=== PATIENT | female | born 1930 | race Caucasian/White ===

== ENCOUNTER 2018-06-20 11:56 | Inpatient (IN) ==
--- NOTE | 2018-06-20 14:39 | Pharmacy Consult Notes ---
[facility] Pharmacy VTE Monitoring - Patient Demographics Admission date: 06/20/18 Report Date: 06/20/18 Time: 14:38 Allergies/Adverse Reactions: Patient Allergies ciprofloxacin Allergy (Unknown, Verified 10/21/17 04:31) escitalopram Allergy (Unknown, Verified 10/21/17 04:31) pregabalin Allergy (Unknown, Verified 10/21/17 04:31) Height: 1.65 m Weight: 54.885 kg - VTE Risk Was VTE Risk Assessment Performed: Yes VTE Risk Level: Very Low Risk - Prophylaxis VTE Prophylaxis Ordered?: Yes Types of VTE Prophylaxis: TEDS Knee High Location of Applied Device: Bilateral Lower Extremeties - VTE Diagnosis Confirmed Treatment or plan recommended: Continue Current Treatment
[2018-06-20 14:51] LABS: Basophils # 0.1 K/mm3 (0-0.2); Basophils % 0.4 % (0.1-2.0); Eosinophils # 0.2 K/mm3 (0.0-0.4); Eosinophils % 1.7 % (0.1-12.0); Hematocrit 37.5 % (37.0-47.0); Hemoglobin 12.2 g/dL (12.2-16.2); Lymphocytes # 1.1 K/mm3 (0.7-4.5); Lymphocytes % 8.8 K/mm3 (10-50); Mean Corpuscular HGB Conc 32.5 g/dL (31.8-35.4); Mean Corpuscular Hemoglobin 31.5 pg (27.0-31.2); Mean Corpuscular Volume 96.8 fl (81-99); Mean Platelet Volume 7.7 fl (7.4-10.4); Monocytes # 0.8 K/mm3 (0.1-1.0); Monocytes % 6.2 % (1.7-9.3); Neutrophils # 10.6 K/mm3 (1.8-7.8); Neutrophils % 82.8 % (37.0-80.0); Platelet Count 150 K/mm3 (142-424); Red Blood Count 3.87 M/mm3 (4.20-5.40); Red Cell Distribution Width 13.9 % (11.5-17.5); White Blood Count 12.9 K/mm3 (4.8-10.8)
[2018-06-20 15:13] LABS: Albumin Level 3.6 gm/dL (3.4-5.0); Albumin/Globulin Ratio 0.9 (1.1-1.8); Anion Gap 12.4 mEq/L (5-15); Bilirubin,Total 0.6 mg/dL (0.2-1.0); Calcium 9.2 mg/dL (8.5-10.1); Globulin 3.8 gm/dl (1.3-3.2); Potassium 4.4 mmoL/L (3.5-5.1); Total Protein,Serum 7.4 gm/dL (6.4-8.2)
--- NOTE | 2018-06-21 08:20 | History & Physical Report ---
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 Daughter reports that she has had accelerating weakness over the past 3-4 days, worse in the morning and she reports a cough. In the office she was found to be weak, orthostatic, unable to bear weight. Had some chronic leg ulcers that have failed to heal with antibiotic and dressing treatment as an outpatient and she was admitted to hospital for further diagnostic testing. [facility] History I have reviewed the patient's past medical history: Yes Medical History: Reports:: Anxiety, Hypertension Denies:: Cancer, Diabetes Mellitus Type 1, Diabetes Mellitus Type 2, MRSA Other Medical History: Reports: Arthritis, Cataracts, Sinus Problems, Thyroid Disease Laterality Cases: Bilateral: Lumpectomy Other Surgeries: Yes: Appendectomy, Cholecystectomy, Colonoscopy, EGD, Hysterectomy-TotalComment Only: Other (HERNIA) Amputation: No Fractures: No - *Social History Educational Level: Completed [employer] Smoking Status: Never smoker Alcohol Intake: never Occupational Status: retired Housing: apartment Household Members: none - Psychiatric History Expresses thoughts of harming self/others: None Suicide Plan Description: No Plan Pschychiatric History:: Reports:: Anxiety *Family Hx:: No significant family history Review of Systems - Review of Systems Review of systems:: pertinent systems reviewed and negative unless documented below - Constitutional Reports anorexia, Reports body ache(s), Reports chills, Reports daytime sleepiness, Reports lack of energy, Reports malaise, Reports weakness - Eyes Denies blurry vision, Denies change in vision - ENT Denies abnormal hearing - *Cardiovascular Reports shortness of breath with activity, Denies chest pain, Denies chest pain at rest, Denies shortness of breath - *Respiratory Reports cough, Reports shortness of breath, Denies change in phlegm color, Denies chest congestion - *Gastrointestinal Reports abdominal pain (Chronic right upper quadrant), Reports feeling full lurdes y, Denies coffee ground vomit, Denies constipation, Denies incontinent of stools, Denies loose stools, Denies black, tarry stools - *Musculoskeletal Reports abnormal walking, Reports joint pain, Reports decreased muscle mass - Integumentary/Breasts Reports bleeding lesions, Denies hair loss - *Neurologic Reports abnormal walking, Denies abnormal hearing - Psychiatric Reports depression - Endocrine Denies cold intolerance, Denies excessive sweating Meds Home Medications Medication Instructions Recorded Confirmed Type Aspirin [Adult Low Dose Aspirin EC] 81 mg PO DAILY 10/21/17 11/02/17 History Carvedilol [Carvedilol 3.125mg Tab] 3.125 mg PO HS 10/21/17 11/03/17 History Levothyroxine Sodium 0.075 mg PO DAILY 10/21/17 11/02/17 History [Levothyroxine 100mcg (0.1MG) Tab] raNITIdine HCl [Zantac] 150 mg PO BID 10/21/17 11/02/17 History Furosemide [Furosemide 20mg Tab] 10 mg PO DAILY 11/02/17 06/20/18 History Timolol Maleate [Timoptic 0.5% 1 drop OP BID 11/02/17 11/02/17 History opth soln 5mL] Clindamycin HCl [Clindamycin 300mg 300 mg PO TID 06/20/18 History Cap] Allergies Allergy/AdvReac Type Severity Reaction Status Date / Time ciprofloxacin Allergy Unknown Verified 10/21/17 04:31 escitalopram Allergy Unknown Verified 10/21/17 04:31 pregabalin Allergy Unknown Verified 10/21/17 04:31 Exam Vital signs and Labs for Last 24 Hours: Temp Pulse Resp BP Pulse Ox 98.0 F 67 16 157/73 96 06/21/18 07:58 06/21/18 07:58 06/21/18 07:58 06/21/18 07:58 06/21/18 07:58 Laboratory Results - last 24 hr 06/20/18 14:26: WBC 12.9 H, RBC 3.87 L, Hgb 12.2, Hct 37.5, MCV 96.8, MCH 31.5 H , MCHC 32.5, RDW 13.9, Plt Count 150, MPV 7.7, Neut % (Auto) 82.8 H, Lymph % (Auto) 8.8 L, [place] % (Auto) 6.2, Eos % (Auto) 1.7, Baso % (Auto) 0.4, Neut # (Auto) 10.6 H, Lymph # (Auto) 1.1, [place] # (Auto) 0.8, Eos # (Auto) 0.2, Baso # (Auto) 0.1 06/20/18 14:26: Sodium 137, Potassium 4.4, Chloride 100, Carbon Dioxide 29, Ani on Gap 12.4, BUN 11, Creatinine 1.11 H, Estimated Creat Clear 31, Estimated GFR 46 L, Est GFR ( Amer) 56 L, Glucose 99, Calcium 9.2, Magnesium 1.9, Total Bilirubin 0.6, AST 18, ALT 17, Alkaline Phosphatase 80, Total Protein 7.4, Albumin 3.6, Globulin 3.8 H, Albumin/Globulin Ratio 0.9 L I & O for Last 24 hours: Intake & Output 06/18/18 06/19/18 06/20/18 06/21/18 11:59 11:59 11:59 11:59 Intake Total 1046 / 1046 Output Total 850 / 850 Balance 196 / 196 Weight 123 lb 1 oz Microbiology Reports for the Last 24 Hours: Microbiology 06/20/18 14:48 Leg,Right Gram Stain - Final 06/20/18 14:48 Leg,Right Wound Culture - Preliminary Gram Negative Rods Narrative: Patient was oriented x2, a little fuzzy about the date. Oropharynx is dry but clear, no JVD. Tympanic membranes otherwise clear.. Lungs have rhonchi in both bases. Abdomen soft. Tenderness in right upper quadrant as noted on every exam. No CVA pain. Legs are dry, nonhealing anterior solano ulcers with minimal exudate on both anterior shins. No edema noted. Loss of sensation and paresthesias noted sick consistent with her previous diagnosis of Guillain-Delcid. Heart rate regular with no murmurs. Assessment and Plan (1) Peripheral neuropathy Current visit: Yes Status: Acute Category: Medical Code(s): G62.9 - Polyneuropathy, unspecified Neuropathy limits her activity levels. Seems to be flaring. Plan will be to PT and OT to see her. She has benefited from skilled care stay in the past. This may need to be redone. (2) Left lower lobe pneumonia Current visit: Yes Status: Acute Category: Medical Code(s): J18.1 - Lobar pneumonia, unspecified organism Admission chest x-ray noted to show pneumonia. We will institute antibiotic therapy (3) Cellulitis of right lower leg Current visit: No Status: Acute Category: Medical Code(s): L03.115 - Cellulitis of right lower limb Failed outpatient therapy. Intravenous ceftriaxone and topical mupirocin (4) Fall Current visit: No Status: Acute Qualifiers: Category: Medical Code(s): W19.XXXA - Unspecified fall, initial encounter PT/OT evaluation (5) Hypothyroidism Current visit: No Status: Chronic Qualifiers: Category: Medical Code(s): E03.9 - Hypothyroidism, unspecified
--- NOTE | 2018-06-21 08:22 | Progress Note ---
Internal Medicine - PN: Subj *Date: 06/21/18 *Time: 08:21 Interval history: Patient continues to feel poorly, did eat some breakfast. Exam Vital signs and Labs for Last 24 Hours: Temp Pulse Resp BP Pulse Ox 98.0 F 67 16 157/73 96 06/21/18 07:58 06/21/18 07:58 06/21/18 07:58 06/21/18 07:58 06/21/18 07:58 Laboratory Results - last 24 hr 06/20/18 14:26: WBC 12.9 H, RBC 3.87 L, Hgb 12.2, Hct 37.5, MCV 96.8, MCH 31.5 H , MCHC 32.5, RDW 13.9, Plt Count 150, MPV 7.7, Neut % (Auto) 82.8 H, Lymph % (Auto) 8.8 L, [place] % (Auto) 6.2, Eos % (Auto) 1.7, Baso % (Auto) 0.4, Neut # (Auto) 10.6 H, Lymph # (Auto) 1.1, [place] # (Auto) 0.8, Eos # (Auto) 0.2, Baso # (Auto) 0.1 06/20/18 14:26: Sodium 137, Potassium 4.4, Chloride 100, Carbon Dioxide 29, Anion Gap 12.4, BUN 11, Creatinine 1.11 H, Estimated Creat Clear 31, Estimated GFR 46 L, Est GFR ( Amer) 56 L, Glucose 99, Calcium 9.2, Magnesium 1.9, Total Bilirubin 0.6, AST 18, ALT 17, Alkaline Phosphatase 80, Total Protein 7.4, Albumin 3.6, Globulin 3.8 H, Albumin/Globulin Ratio 0.9 L I & O for Last 24 hours: Intake & Output 06/18/18 06/19/18 06/20/18 06/21/18 11:59 11:59 11:59 11:59 Intake Total 1046 / 1046 Output Total 850 / 850 Balance 196 / 196 Weight 123 lb 1 oz Microbiology Reports for the Last 24 Hours: Microbiology 06/20/18 14:48 Leg,Right Gram Stain - Final 06/20/18 14:48 Leg,Right Wound Culture - Preliminary Gram Negative Rods Narrative: Cough. Lungs have rhonchi bilaterally, heart rate regular. No change in leg exam. Very weak Assessment and Plan (1) Peripheral neuropathy Current visit: Yes Status: Acute Category: Medical Code(s): G62.9 - Polyneuropathy, unspecified (2) Left lower lobe pneumonia Current visit: Yes Status: Acute Category: Medical Code(s): J18.1 - Lobar pneumonia, unspecified organism (3) Cellulitis of right lower leg Current visit: No Status: Acute Category: Medical Code(s): L03.115 - Cellulitis of right lower limb (4) Fall Current visit: No Status: Acute Qualifiers: Category: Medical Code(s): W19.XXXA - Unspecified fall, initial encounter (5) Hypothyroidism Current visit: No Status: Chronic Qualifiers: Category: Medical Code(s): E03.9 - Hypothyroidism, unspecified - Assessment and plan all Dx Assessment and Plan for all problems:: Continue antibiotic therapy. PT/OT evaluation. Patient may benefit from skilled care rehab stay. Sputum culture ordered.
[2018-06-22 07:18] LABS: Basophils % 0.4 % (0.1-2.0); Eosinophils # 0.3 K/mm3 (0.0-0.4); Eosinophils % 5.8 % (0.1-12.0); Hematocrit 31.9 % (37.0-47.0); Hemoglobin 10.1 g/dL (12.2-16.2); Lymphocytes % 33.6 K/mm3 (10-50); Mean Corpuscular HGB Conc 31.7 g/dL (31.8-35.4); Mean Corpuscular Hemoglobin 31.6 pg (27.0-31.2); Mean Corpuscular Volume 99.8 fl (81-99); Mean Platelet Volume 7.8 fl (7.4-10.4); Monocytes # 0.6 K/mm3 (0.1-1.0); Monocytes % 9.9 % (1.7-9.3); Neutrophils # 2.9 K/mm3 (1.8-7.8); Neutrophils % 50.2 % (37.0-80.0); Platelet Count 152 K/mm3 (142-424); Red Blood Count 3.19 M/mm3 (4.20-5.40); Red Cell Distribution Width 14.2 % (11.5-17.5); White Blood Count 5.9 K/mm3 (4.8-10.8)
--- NOTE | 2018-06-22 07:54 | Progress Note ---
Internal Medicine - PN: Subj *Date: 06/22/18 *Time: 08:00 Interval history: Patient is sitting up in bed eating breakfast. She continues to have non- productive cough, mild shortness of breath with exertion. She did well with PT yesterday and was able to ambulate 200 foot. Alert and oriented x3. Rate and rhythm regular. Lung sounds clear and equal anteriorly. Abdomen soft and nontender. Left anterior solano with small superficial wound, + for pseudomonas which is pansensitive. Exam Vital signs and Labs for Last 24 Hours: Temp Pulse Resp BP Pulse Ox 98.5 F 76 14 163/72 94 L 06/22/18 04:00 06/22/18 04:00 06/22/18 04:00 06/22/18 04:00 06/22/18 04:00 Laboratory Results - last 24 hr 06/22/18 06:50: WBC 5.9 D, RBC 3.19 L, Hgb 10.1 L, Hct 31.9 L, MCV 99.8 H, MCH 31.6 H, MCHC 31.7 L, RDW 14.2, Plt Count 152, MPV 7.8, Neut % (Auto) 50.2, Lymph % (Auto) 33.6, [place] % (Auto) 9.9 H, Eos % (Auto) 5.8, Baso % (Auto) 0.4, Neut # (Auto) 2.9, Lymph # (Auto) 2.0, [place] # (Auto) 0.6, Eos # (Auto) 0.3, Baso # (Auto) 0.0 I & O for Last 24 hours: Intake & Output 06/19/18 06/20/18 06/21/18 06/22/18 11:59 11:59 11:59 11:59 Intake Total 1046 / 1046 980 / 980 Output Total 1100 / 1100 350 / 350 Balance -54 / -54 630 / 630 Weight 123 lb 1 oz 123 lb 0.992 oz Microbiology Reports for the Last 24 Hours: Microbiology 06/20/18 14:48 Leg,Right Gram Stain - Final 06/20/18 14:48 Leg,Right Wound Culture - Final Pseudomonas aeruginosa Assessment and Plan (1) Peripheral neuropathy Current visit: Yes Status: Acute Category: Medical Code(s): G62.9 - Polyneuropathy, unspecified (2) Left lower lobe pneumonia Current visit: Yes Status: Acute Category: Medical Code(s): J18.1 - Lobar pneumonia, unspecified organism (3) Cellulitis of right lower leg Current visit: No Status: Acute Category: Medical Code(s): L03.115 - Cellulitis of right lower limb (4) Fall Current visit: No Status: Acute Qualifiers: Category: Medical Code(s): W19.XXXA - Unspecified fall, initial encounter (5) Hypothyroidism Current visit: No Status: Chronic Qualifiers: Category: Medical Code(s): E03.9 - Hypothyroidism, unspecified (6) Pseudomonas aeruginosa infection Current visit: Yes Status: Acute Category: Medical Code(s): A49.8 - Other bacterial infections of unspecified site - Assessment and plan all Dx Assessment and Plan for all problems:: Continue azithromycin and ceftriaxone for pneumonia. Add tobra for pseudomonas cellulitis. Daughter reports facial swelling, nausea and confusion with Cipro. Blood pressure elevated, will increase Coreg to home dose. Plan to transition to [facility] Tuesday for short term rehab.
--- NOTE | 2018-06-22 08:46 | Pharmacy Consult Notes ---
- Pharmacy Consult Date: 06/22/18 Time: 08:44 Referring provider: JAYA RICHARD Reason for Consult:: TOBRAMYCIN DOSING Allergies and ADEs:: Allergies Allergy/AdvReac Type Severity Reaction Status Date / Time ciprofloxacin Allergy Unknown Verified 10/21/17 04:31 escitalopram Allergy Unknown Verified 10/21/17 04:31 pregabalin Allergy Unknown Verified 10/21/17 04:31 Home Medications:: Home Medications Medication Instructions Recorded Confirmed Type Furosemide [Furosemide 20mg Tab] 10 mg PO DAILY 11/02/17 06/20/18 History ALPRAZolam [Xanax 1mg tab] 1 mg PO TID 06/21/18 06/21/18 History Carvedilol [Carvedilol 6.25mg Tab] 6.25 mg PO BID 06/21/18 06/21/18 History Cetirizine HCl 10 mg PO DAILY 06/21/18 06/21/18 History Gabapentin [Neurontin 600mg 600 mg PO QID 06/21/18 06/21/18 History tablet] Levothyroxine Sodium 75 mcg PO DAILY 06/21/18 06/21/18 History [Levothyroxine 75mcg (0.075mg) Tab] Sertraline HCl [Zoloft 50mg tablet] 50 mg PO DAILY 06/21/18 06/21/18 History Tizanidine HCl [Zanaflex 4mg 2 mg PO HSP PRN 06/21/18 06/21/18 History tablet] raNITIdine HCl [Ranitidine HCl] 150 mg PO BID 06/21/18 06/21/18 History Height: 1.65 m Weight: 55.82 kg Laboratory Results:: Laboratory Results - last 24 hr 06/22/18 06:50: WBC 5.9 D, RBC 3.19 L, Hgb 10.1 L, Hct 31.9 L, MCV 99.8 H, MCH 31.6 H, MCHC 31.7 L, RDW 14.2, Plt Count 152, MPV 7.8, Neut % (Auto) 50.2, Lymph % (Auto) 33.6, [place] % (Auto) 9.9 H, Eos % (Auto) 5.8, Baso % (Auto) 0.4, Neut # (Auto) 2.9, Lymph # (Auto) 2.0, [place] # (Auto) 0.6, Eos # (Auto) 0.3, Baso # (Auto) 0.0 06/22/18 06:50: Sodium 142, Potassium 4.0, Chloride 110 H, Carbon Dioxide 26, Anion Gap 10.0, BUN 6 L D, Creatinine 0.71 D, Estimated Creat Clear 35, Estimated GFR 78, Est GFR ( Amer) 94 D, Glucose 86 Medical History: Reports:: Anxiety, Hypertension Denies:: Cancer, Diabetes Mellitus Type 1, Diabetes Mellitus Type 2, MRSA Assessment and Plan (1) Peripheral neuropathy Current visit: Yes Status: Acute Category: Medical Code(s): G62.9 - Polyneuropathy, unspecified (2) Left lower lobe pneumonia Current visit: Yes Status: Acute Category: Medical Code(s): J18.1 - Lobar pneumonia, unspecified organism (3) Cellulitis of right lower leg Current visit: No Status: Acute Category: Medical Code(s): L03.115 - Cellulitis of right lower limb (4) Fall Current visit: No Status: Acute Qualifiers: Category: Medical Code(s): W19.XXXA - Unspecified fall, initial encounter (5) Hypothyroidism Current visit: No Status: Chronic Qualifiers: Category: Medical Code(s): E03.9 - Hypothyroidism, unspecified (6) Pseudomonas aeruginosa infection Current visit: Yes Status: Acute Category: Medical Code(s): A49.8 - Other bacterial infections of unspecified site - Assessment and plan all Dx Assessment and Plan for all problems:: BASED ON PATIENT'S FACTORS, RECOMMEND STARTING WITH TOBRAMYCIN 240 MG Q48H AT THIS TIME. PHARMACY WILL FOLLOW DAILY AND ADJUST APPROPRIATE. JUAN ENRIQUEZ, [place]
--- NOTE | 2018-06-23 08:46 | Progress Note ---
Internal Medicine - PN: Subj *Date: 06/23/18 *Time: 08:00 Interval history: Patient remained hemodynamically stable overnight. Remained afebrile. Tolerating regular diet. Has had elevated systolic blood pressure with wide pulse pressure. Denies any headaches, confusion, chest pain, shortness of breath, or worsening lower extremity edema. In a good mood this morning and very talkative. Alert and oriented. Exam Vital signs and Labs for Last 24 Hours: Temp Pulse Resp BP Pulse Ox 97.8 F 67 18 183/85 98 06/23/18 08:00 06/23/18 08:00 06/23/18 08:00 06/23/18 08:00 06/23/18 08:35 Laboratory Results - last 24 hr 06/22/18 06:50: Calcium 8.0 L D 06/22/18 14:43: Stl Aeromonas (PCR) Not detected, Stl C. cayetanensis PCR Not detected, Stool Rotavirus (PCR) Not detected, Stl Adenov F 40/41 PCR Not detected, Stool Astrovirus (PCR) Not detected, Stool Campylobacter PCR Not detected, Stl C.difficile Tox PCR Not detected, Stool Cryptosporidium PCR Not detected, Stl E.coli Shiga Tox PCR Not detected, Stool E coli O157 PCR Not detected, Stl Enterotoxigenic E PCR Not detected, Stool EPEC (PCR) Not detected, Stool EAEC (PCR) Not detected, Stl E. histolytica PCR Not detected, Stool Giardia Lamblia PCR Not detected, Stool Salmonella PCR Not detected, Stool Sapovirus (PCR) Not detected, Stl P. shigelloides PCR Not detected, Stl Shigella/EIEC PCR Not detected, St Y.enterocolitica PCR Not detected, Stool Vibrio (PCR) Not detected, Stl Vibrio cholerae PCR Not detected, Stl Norovirus GI/GII PCR Not detected 06/22/18 15:10: Random Tobramycin 5.6 06/22/18 23:00: Random Tobramycin 2.0 I & O for Last 24 hours: Intake & Output 06/20/18 06/21/18 06/22/18 06/23/18 23:59 23:59 23:59 23:59 Intake Total 50 / 50 1476 / 1476 2194 / 2194 777 / 777 Output Total 600 / 600 750 / 750 651 / 651 300 / 300 Balance -550 / -550 726 / 726 1543 / 1543 477 / 477 Weight 54.885 kg 55.82 kg 55.82 kg 54.83 kg Microbiology Reports for the Last 24 Hours: Microbiology 06/20/18 14:48 Leg,Right Gram Stain - Final 06/20/18 14:48 Leg,Right Wound Culture - Final Pseudomonas aeruginosa - *Routine HEENT Exam Head: Present: normocephalic, atraumatic Eye: Present: EOMI, PERRL ENT: Present: mucous membranes moist - *Routine Neck Exam Present: supple, full ROM. Absent: lymphadenopathy - *Routine Respiratory Exam Present: CTA bilaterally. Absent: prolonged expiratory phase, rales, wheezes, crackles - *Routine Cardiovascular Exam Present: RRR, Normal S1, Normal S2. Absent: murmur - *Routine Abdominal Exam Present: soft, normoactive bowel sounds - *Routine Rectal Exam Patient deferred: visual exam - *Routine Exam Patient deferred: external exam - *Routine Extremities Exam Present: edema. Absent: cyanosis, clubbing Comments: Chronic stasis/cellulitis discoloration on the anterior shins. Minimal warmth to palpation, minimal tenderness - *Routine Skin Exam Present: intact, erythema, lesions (On bilateral anterior shins). Absent: cyanosis - *Routine Neurological Exam Present: alert, oriented X3, CN II-XII intact Assessment and Plan (1) Peripheral neuropathy Current visit: Yes Status: Acute Category: Medical Code(s): G62.9 - Polyneuropathy, unspecified (2) Left lower lobe pneumonia Current visit: Yes Status: Acute Category: Medical Code(s): J18.1 - Lobar pneumonia, unspecified organism (3) Cellulitis of right lower leg Current visit: No Status: Acute Category: Medical Code(s): L03.115 - Cellulitis of right lower limb (4) Fall Current visit: No Status: Acute Qualifiers: Category: Medical Code(s): W19.XXXA - Unspecified fall, initial encounter (5) Hypothyroidism Current visit: No Status: Chronic Qualifiers: Category: Medical Code(s): E03.9 - Hypothyroidism, unspecified (6) Pseudomonas aeruginosa infection Current visit: Yes Status: Acute Category: Medical Code(s): A49.8 - Other bacterial infections of unspecified site - Assessment and plan all Dx Assessment and Plan for all problems:: Continue current course. Continue antibiotics for pseudomonal infection and pneumonia. Hypertension: Continue carvedilol, initiate lisinopril 5 mg daily to assess response. Titrate as needed. We will not aggressively treat as patient remains asymptomatic even with elevated systolic pressure. Disposition: Planned discharge tomorrow to [facility] for detention. Remains medically stable.
--- NOTE | 2018-06-23 08:50 | Discharge Summary ---
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 Daughter reports that she has had accelerating weakness over the past 3-4 days, worse in the morning and she reports a cough. In the office she was found to be weak, orthostatic, unable to bear weight. Had some chronic leg ulcers that have failed to heal with antibiotic and dressing treatment as an outpatient and she was admitted to hospital for further diagnostic testing. Hospital Course Hospital Course: Ms. Peng was initially admitted due to weakness and debility. Found to have pneumonia and cellulitis on her legs. She has been treated for her pneumonia which is shown significant clinical improvement. Initiation of tobramycin for Pseudomonas cellulitis due to concern for allergy to ciprofloxacin. A 10-day course of tobramycin with continuation of doses intramuscularly every 48 hours after discharge. Additionally during admission patient developed hypertension. Adjustment was made to her hypertension regimen with addition of lisinopril 5 mg daily. Plan to continue this in the outpatient setting. Continue treatment for pneumonia with Cefdinir total of 10 days, completing 5 days in the outpatient setting. Completed course of azithromycin during admission. Patient was assessed for fdc placement, accepted to [facility]. Medically stable for discharge to skilled nursing for continued care Objective Vital signs: Temp Pulse Resp BP Pulse Ox 97.8 F 67 18 183/85 98 06/23/18 08:00 06/23/18 08:00 06/23/18 08:00 06/23/18 08:00 06/23/18 08:35 - *Routine HEENT Exam Head: Present: normocephalic, atraumatic Eye: Present: EOMI, PERRL ENT: Present: mucous membranes moist - *Routine Neck Exam Present: supple, full ROM. Absent: lymphadenopathy - *Routine Respiratory Exam Present: CTA bilaterally. Absent: prolonged expiratory phase, rales, wheezes - *Routine Cardiovascular Exam Present: RRR, Normal S1, Normal S2 - *Routine Abdominal Exam Present: soft, normoactive bowel sounds. Absent: tenderness - *Routine Rectal Exam Patient deferred: visual exam - *Routine Exam Patient deferred: external exam - *Routine Extremities Exam Present: edema. Absent: cyanosis, clubbing Comments: Chronic venous stasis changes on anterior shins with mild erythema due to cellulitis, improving - *Routine Skin Exam Present: intact. Absent: cyanosis - *Routine Neurological Exam Present: alert, oriented X3, CN II-XII intact. Absent: altered mental status Results Labs on day of discharge: Labs from last 24 hours 06/22/18 06/22/18 06/22/18 23:00 15:10 14:43 Stl Aeromonas (PCR) Not detected Stl C. cayetanensis PCR Not detected Stool Rotavirus (PCR) Not detected Stl Adenov F 40/41 PCR Not detected Stool Astrovirus (PCR) Not detected Stool Campylobacter PCR Not detected Stl C.difficile Tox PCR Not detected Stool Cryptosporidium PCR Not detected Stl E.coli Shiga Tox PCR Not detected Stool E coli O157 PCR Not detected Stl Enterotoxigenic E PCR Not detected Stool EPEC (PCR) Not detected Stool EAEC (PCR) Not detected Stl E. histolytica PCR Not detected Stool Giardia Lamblia PCR Not detected Stool Salmonella PCR Not detected Stool Sapovirus (PCR) Not detected Stl P. shigelloides PCR Not detected Stl Shigella/EIEC PCR Not detected St Y.enterocolitica PCR Not detected Stool Vibrio (PCR) Not detected Stl Vibrio cholerae PCR Not detected Stl Norovirus GI/GII PCR Not detected Random Tobramycin 2.0 5.6 DS: Diagnosis - Discharge Diagnosis (1) Peripheral neuropathy Status: Acute (2) Left lower lobe pneumonia Status: Acute (3) Cellulitis of right lower leg Status: Acute (4) Fall Status: Acute (5) Hypothyroidism Status: Chronic (6) Pseudomonas aeruginosa infection Status: Acute Discharge Plan - Patient Discharge Instructions ACTIVITY: Continue current activity, Ambulate as tolerated DIET: continue same diet - Follow up Plan Follow up with: Fredis Quiñones MD [Primary Care Provider] - 1 week Disposition: er Intermediate Care Fac Home Medications: Home Medications Medication Instructions Recorded Confirmed Type Furosemide [Furosemide 20mg Tab] 10 mg PO DAILY 11/02/17 06/20/18 History ALPRAZolam [Xanax 1mg tab] 1 mg PO TID 06/21/18 06/21/18 History Carvedilol [Carvedilol 6.25mg Tab] 6.25 mg PO BID 06/21/18 06/21/18 History Cetirizine HCl 10 mg PO DAILY 06/21/18 06/21/18 History Gabapentin [Neurontin 600mg 600 mg PO QID 06/21/18 06/21/18 History tablet] Levothyroxine Sodium 75 mcg PO DAILY 06/21/18 06/21/18 History [Levothyroxine 75mcg (0.075mg) Tab] Sertraline HCl [Zoloft 50mg tablet] 50 mg PO DAILY 06/21/18 06/21/18 History Tizanidine HCl [Zanaflex 4mg 2 mg PO HSP PRN 06/21/18 06/21/18 History tablet] raNITIdine HCl [Ranitidine HCl] 150 mg PO BID 06/21/18 06/21/18 History Prescriptions/Medication Reconciliation: New Lisinopril [Zestril 5mg Tablet] 5 mg PO DAILY tablet Mupirocin [Bactroban 2% Ointment 22gm tube] 1 applic TP TID tube Cefdinir [Omnicef 300mg Capsule] 300 mg PO DAILY capsule Tobramycin Sulfate [Tobramycin 80mg/2mL Vial] 360 mg IM Q48H ml Azithromycin [Zithromax 250mg tab] 250 mg PO DAILY 2 Days #1 tablet Cefdinir [Omnicef 300mg Capsule] 300 mg PO BID 5 Days #10 cap Continue ALPRAZolam [Xanax 1mg tab] 1 mg PO TID Carvedilol [Carvedilol 6.25mg Tab] 6.25 mg PO BID Tizanidine HCl [Zanaflex 4mg tablet] 2 mg PO HSP PRN PRN Reason: Muscle Spasm raNITIdine HCl [Ranitidine HCl] 150 mg PO BID Sertraline HCl [Zoloft 50mg tablet] 50 mg PO DAILY Gabapentin [Neurontin 600mg tablet] 600 mg PO QID Cetirizine HCl 10 mg PO DAILY Furosemide [Furosemide 20mg Tab] 10 mg PO DAILY Levothyroxine Sodium [Levothyroxine 75mcg (0.075mg) Tab] 75 mcg PO DAILY
--- NOTE | 2018-06-23 10:21 | Progress Note ---
Internal Medicine - PN: Subj *Date: 06/23/18 *Time: 10:20 Exam Vital signs and Labs for Last 24 Hours: Temp Pulse Resp BP Pulse Ox 97.8 F 67 18 183/85 98 06/23/18 08:00 06/23/18 08:00 06/23/18 08:00 06/23/18 08:00 06/23/18 08:35 Laboratory Results - last 24 hr 06/22/18 14:43: Stl Aeromonas (PCR) Not detected, Stl C. cayetanensis PCR Not detected, Stool Rotavirus (PCR) Not detected, Stl Adenov F 40/41 PCR Not detected, Stool Astrovirus (PCR) Not detected, Stool Campylobacter PCR Not detected, Stl C.difficile Tox PCR Not detected, Stool Cryptosporidium PCR Not detected, Stl E.coli Shiga Tox PCR Not detected, Stool E coli O157 PCR Not detected, Stl Enterotoxigenic E PCR Not detected, Stool EPEC (PCR) Not detected, Stool EAEC (PCR) Not detected, Stl E. histolytica PCR Not detected, Stool Giardia Lamblia PCR Not detected, Stool Salmonella PCR Not detected, Stool Sapovirus (PCR) Not detected, Stl P. shigelloides PCR Not detected, Stl Shigella/EIEC PCR Not detected, St Y.enterocolitica PCR Not detected, Stool Vibrio (PCR) Not detected, Stl Vibrio cholerae PCR Not detected, Stl Norovirus GI/GII PCR Not detected 06/22/18 15:10: Random Tobramycin 5.6 06/22/18 23:00: Random Tobramycin 2.0 I & O for Last 24 hours: Intake & Output 06/20/18 06/21/18 06/22/18 06/23/18 23:59 23:59 23:59 23:59 Intake Total 50 / 50 1476 / 1476 2194 / 2194 777 / 777 Output Total 600 / 600 750 / 750 651 / 651 300 / 300 Balance -550 / -550 726 / 726 1543 / 1543 477 / 477 Weight 54.885 kg 55.82 kg 55.82 kg 54.83 kg Microbiology Reports for the Last 24 Hours: Microbiology 06/20/18 14:48 Leg,Right Gram Stain - Final 06/20/18 14:48 Leg,Right Wound Culture - Final Pseudomonas aeruginosa Assessment and Plan (1) Peripheral neuropathy Current visit: Yes Status: Acute Category: Medical Code(s): G62.9 - Polyneuropathy, unspecified (2) Left lower lobe pneumonia Current visit: Yes Status: Acute Category: Medical Code(s): J18.1 - Lobar pneumonia, unspecified organism (3) Cellulitis of right lower leg Current visit: No Status: Acute Category: Medical Code(s): L03.115 - Cellulitis of right lower limb (4) Fall Current visit: No Status: Acute Qualifiers: Category: Medical Code(s): W19.XXXA - Unspecified fall, initial encounter (5) Hypothyroidism Current visit: No Status: Chronic Qualifiers: Category: Medical Code(s): E03.9 - Hypothyroidism, unspecified (6) Pseudomonas aeruginosa infection Current visit: Yes Status: Acute Category: Medical Code(s): A49.8 - Other bacterial infections of unspecified site The patient's infection will respond to the chosen ABx?: Yes Is the patient receiving the right drug, dose, and route?: Yes Could a more targeted ABx be ordered?: No
--- NOTE | 2018-06-23 11:09 | Pharmacy Consult Notes ---
- Pharmacy Consult Date: 06/23/18 Time: 11:03 Referring provider: DR. LAW Reason for Consult:: TOBRAMYCIN LEVELS Allergies and ADEs:: Allergies Allergy/AdvReac Type Severity Reaction Status Date / Time ciprofloxacin Allergy Unknown Verified 10/21/17 04:31 escitalopram Allergy Unknown Verified 10/21/17 04:31 pregabalin Allergy Unknown Verified 10/21/17 04:31 Home Medications:: Home Medications Medication Instructions Recorded Confirmed Type Furosemide [Furosemide 20mg Tab] 10 mg PO DAILY 11/02/17 06/20/18 History ALPRAZolam [Xanax 1mg tab] 1 mg PO TID 06/21/18 06/21/18 History Carvedilol [Carvedilol 6.25mg Tab] 6.25 mg PO BID 06/21/18 06/21/18 History Cetirizine HCl 10 mg PO DAILY 06/21/18 06/21/18 History Gabapentin [Neurontin 600mg 600 mg PO QID 06/21/18 06/21/18 History tablet] Levothyroxine Sodium 75 mcg PO DAILY 06/21/18 06/21/18 History [Levothyroxine 75mcg (0.075mg) Tab] Sertraline HCl [Zoloft 50mg tablet] 50 mg PO DAILY 06/21/18 06/21/18 History Tizanidine HCl [Zanaflex 4mg 2 mg PO HSP PRN 06/21/18 06/21/18 History tablet] raNITIdine HCl [Ranitidine HCl] 150 mg PO BID 06/21/18 06/21/18 History Height: 1.65 m Weight: 54.83 kg Laboratory Results:: Laboratory Results - last 24 hr 06/22/18 14:43: Stl Aeromonas (PCR) Not detected, Stl C. cayetanensis PCR Not detected, Stool Rotavirus (PCR) Not detected, Stl Adenov F 40/41 PCR Not detected, Stool Astrovirus (PCR) Not detected, Stool Campylobacter PCR Not detected, Stl C.difficile Tox PCR Not detected, Stool Cryptosporidium PCR Not detected, Stl E.coli Shiga Tox PCR Not detected, Stool E coli O157 PCR Not detected, Stl Enterotoxigenic E PCR Not detected, Stool EPEC (PCR) Not detected, Stool EAEC (PCR) Not detected, Stl E. histolytica PCR Not detected, Stool Giardia Lamblia PCR Not detected, Stool Salmonella PCR Not detected, Stool Sapovirus (PCR) Not detected, Stl P. shigelloides PCR Not detected, Stl Shigella/EIEC PCR Not detected, St Y.enterocolitica PCR Not detected, Stool Vibrio (PCR) Not detected, Stl Vibrio cholerae PCR Not detected, Stl Norovirus GI/GII PCR Not detected 06/22/18 15:10: Random Tobramycin 5.6 06/22/18 23:00: Random Tobramycin 2.0 Medical History: Reports:: Anxiety, Hypertension Denies:: Cancer, Diabetes Mellitus Type 1, Diabetes Mellitus Type 2, MRSA Assessment and Plan (1) Peripheral neuropathy Current visit: Yes Status: Acute Category: Medical Code(s): G62.9 - Polyneuropathy, unspecified (2) Left lower lobe pneumonia Current visit: Yes Status: Acute Category: Medical Code(s): J18.1 - Lobar pneumonia, unspecified organism (3) Cellulitis of right lower leg Current visit: No Status: Acute Category: Medical Code(s): L03.115 - Cellulitis of right lower limb (4) Fall Current visit: No Status: Acute Qualifiers: Category: Medical Code(s): W19.XXXA - Unspecified fall, initial encounter (5) Hypothyroidism Current visit: No Status: Chronic Qualifiers: Category: Medical Code(s): E03.9 - Hypothyroidism, unspecified (6) Pseudomonas aeruginosa infection Current visit: Yes Status: Acute Category: Medical Code(s): A49.8 - Other bacterial infections of unspecified site - Assessment and plan all Dx Assessment and Plan for all problems:: TOBRAMYCIN LEVELS: 4-HOUR POST-INFUSION: 5.6 MCG/ML CALCULATED PEAK: 8.25 MCG/ML 12-HOUR POST-INFUSION: 2.0 MCG/ML CALCULATED TROUGH: 0.02 MCG/ML BASED ON LEVELS AND PATIENT FACTORS, RECOMMEND INCREASING DOSE TO TOBRAMYCIN 380 MG IV Q48H. NEXT DOSE WILL BE ON 06/24/18. PHARMACY WILL CONTINUE TO FOLLOW DAILY AND ADJUST APPROPRIATE.
== END 2018-06-24 13:00 ==
LOC: 2ND
PROVIDERS: ADMIT Internal Medicine Adolescent Medicine; ATTEND Internal Medicine Adolescent Medicine

== ENCOUNTER 2018-08-13 11:45 | Observation (INO) ==
[2018-08-13 12:12] LABS: Basophils % 0.4 % (0.1-2.0); Eosinophils # 0.3 K/mm3 (0.0-0.4); Eosinophils % 4.4 % (0.1-12.0); Hematocrit 33.3 % (37.0-47.0); Hemoglobin 10.9 g/dL (12.2-16.2); Lymphocytes # 2.1 K/mm3 (0.7-4.5); Lymphocytes % 36.8 % (10-50); Mean Corpuscular HGB Conc 32.8 g/dL (31.8-35.4); Mean Corpuscular Hemoglobin 31.7 pg (27.0-31.2); Mean Corpuscular Volume 96.9 fl (81-99); Mean Platelet Volume 7.8 fl (7.4-10.4); Monocytes # 0.5 K/mm3 (0.1-1.0); Monocytes % 7.9 % (1.7-9.3); Neutrophils # 2.9 K/mm3 (1.8-7.8); Neutrophils % 50.5 % (37.0-80.0); Platelet Count 148 K/mm3 (142-424); Red Blood Count 3.44 M/mm3 (4.20-5.40); Red Cell Distribution Width 14.2 % (11.5-17.5); White Blood Count 5.8 K/mm3 (4.8-10.8)
[2018-08-13 12:31] LABS: Alanine Aminotransferase 15 U/L (12-78); Albumin Level 3.1 gm/dL (3.4-5.0); Alkaline Phosphatase 43 U/L (46-116); Anion Gap 10.4 mEq/L (5-15); Aspartate Amino Transferase 17 U/L (15-37); Bilirubin,Total 0.3 mg/dL (0.2-1.0); Blood Urea Nitrogen 18 mg/dL (7-18); Calcium 8.5 mg/dL (8.5-10.1); Carbon Dioxide 28 mmol/L (21.0-32.0); Chloride 103 mmol/L (98-107); Creatine Kinase 66 U/L (26-192); Globulin 3.1 gm/dl (1.3-3.2); Glucose 101 mg/dL (74-106); Potassium 4.4 mmoL/L (3.5-5.1); Sodium 137 mmol/L (136-145); T4 (Thyroxine) 5.3 ug/dl (4.7-13.3); Thyroid Stimulating Hormone 8.99 uIU/ml (0.358-3.740); Total Protein,Serum 6.2 gm/dL (6.4-8.2); Triiodothryronine (T3) Uptake 37 % (31-39)
--- NOTE | 2018-08-13 12:35 | Emergency Department Note ---
ED Disposition Clinical Impression: Dizziness, Sinus bradycardia, Labile hypertension, Renal insufficiency, Dehydration, Hypothyroidism (acquired), Anemia, Pre-syncope, Medication side effect Disposition: Still a Patient Condition on Discharge: Fair Instructions: DI for Syncope in Adults (Fainting), DI for Syncope in Children (Fainting) Prescriptions: Carvedilol [Coreg 3.125mg Tablet] 3.125 mg PO BID #30 tab Levothyroxine Sodium [Synthroid 100mcg (0.1mg) tablet] 100 mcg PO DAILY #45 tab Referrals: Fredis Quiñones MD [Primary Care Provider] - - Critical Care Critical Care Time: No Attestation: On , the high probability of a clinically significant, sudden or life threatening deterioration of the following system(s) required my full and direct attention, intervention and personal management. The time I documented below is in addition to time spent performing reported procedures but includes the following listed in this critical care notation. Medical Decision Making - Medical Records Medical records reviewed: Yes: I reviewed the patient's medical records. - Balta Inquiry Pt receiving controlled substance: No Balta was queried for this patient: No Vital Signs: 08/13/18 11:46 08/13/18 11:47 08/13/18 12:43 Temperature 98.0 F Temperature Source Oral Pulse Rate [Orthostatic Lying Left Brachial] Pulse Rate [Orthostatic Sitting Left Brachial] Pulse Rate [Orthostatic Standing Left Brachial] Pulse Rate [Right Brachial] 48 L 54 L 56 L Respiratory Rate 18 Blood Pressure [Orthostatic Lying Left Arm] Blood Pressure [Orthostatic Sitting Left Arm] Blood Pressure [Orthostatic Standing Left Arm] Blood Pressure [Right Arm] 124/64 98/60 L 144/70 H Blood Pressure Mean [Right Arm] 84 72 94 Blood Pressure Source [Right Arm] Automatic Cuff Automatic Cuff Automatic Cuff Blood Pressure Position [Right Arm] Sitting Supine Sitting 02 Sat by Pulse Oximetry 95 98 98 Oxygen Delivery Method Room Air 08/13/18 12:50 08/13/18 13:00 08/13/18 13:30 Temperature Temperature Source Pulse Rate [Orthostatic Lying Left Brachial] 60 Pulse Rate [Orthostatic Sitting Left Brachial] 56 L Pulse Rate [Orthostatic Standing Left Brachial] 70 Pulse Rate [Right Brachial] 55 L 60 Respiratory Rate Blood Pressure [Orthostatic Lying Left Arm] 133/54 L Blood Pressure [Orthostatic Sitting Left Arm] 144/70 H Blood Pressure [Orthostatic Standing Left Arm] 117/54 L Blood Pressure [Right Arm] 133/75 156/75 H Blood Pressure Mean [Right Arm] 94 102 Blood Pressure Source [Right Arm] Automatic Cuff Automatic Cuff Blood Pressure Position [Right Arm] Sitting Sitting 02 Sat by Pulse Oximetry 97 96 Oxygen Delivery Method 08/13/18 14:10 08/13/18 14:30 Temperature Temperature Source Pulse Rate [Orthostatic Lying Left Brachial] Pulse Rate [Orthostatic Sitting Left Brachial] Pulse Rate [Orthostatic Standing Left Brachial] Pulse Rate [Right Brachial] 55 L 58 L Respiratory Rate Blood Pressure [Orthostatic Lying Left Arm] Blood Pressure [Orthostatic Sitting Left Arm] Blood Pressure [Orthostatic Standing Left Arm] Blood Pressure [Right Arm] 174/90 H 186/92 H Blood Pressure Mean [Right Arm] 118 123 Blood Pressure Source [Right Arm] Automatic Cuff Automatic Cuff Blood Pressure Position [Right Arm] Sitting Sitting 02 Sat by Pulse Oximetry 98 97 Oxygen Delivery Method - Lab Data Lab Results 08/13/18 11:27: WBC 5.8, RBC 3.44 L, Hgb 10.9 L, Hct 33.3 L, MCV 96.9, MCH 31.7 H, MCHC 32.8, RDW 14.2, Plt Count 148, MPV 7.8, Neut % (Auto) 50.5, Lymph % (Auto) 36.8, [place] % (Auto) 7.9, Eos % (Auto) 4.4, Baso % (Auto) 0.4, Neut # (Auto) 2.9, Lymph # (Auto) 2.1, [place] # (Auto) 0.5, Eos # (Auto) 0.3, Baso # (Auto) 0.0 08/13/18 11:27: Sodium 137, Potassium 4.4, Chloride 103, Carbon Dioxide 28, Anion Gap 10.4, BUN 18, Creatinine 1.27 H, Estimated Creat Clear 29, Estimated GFR 40 L, Est GFR ( Amer) 48 L, Glucose 101, Calcium 8.5, Total Bilirubin 0.3, AST 17, ALT 15, Alkaline Phosphatase 43 L, Total Creatine Kinase 66, CK-MB (CK-2) 1.9, CK-MB (CK-2) Rel Index 2.9, Troponin I < 0.02, Total Protein 6.2 L, Albumin 3.1 L, Globulin 3.1, Albumin/Globulin Ratio 1.0 L, TSH 8.99 H D, Free T4 Index 2.0 L, Thyroxine (T4) 5.3, T3 Uptake 37 08/13/18 13:05: Stool Occult Blood Positive A Result diagrams: 08/13/18 11:27 08/13/18 11:27 Orders (Tests/Meds): ED MEDICATIONS Generic Name Dose Route Start Last Admin Trade Name Freq PRN Reason Stop Dose Admin Sodium Chloride 500 mls @ 999 mls/hr 08/13/18 14:15 08/13/18 14:11 Sod Chlor 0.9% 1000ml Bag IV 08/13/18 14:45 999 mls/hr .Q31M [place] Administration Discontinued Medications Generic Name Dose Route Start Last Admin Trade Name Freq PRN Reason Stop Dose Admin Sodium Chloride 500 mls @ 999 mls/hr 08/13/18 13:00 08/13/18 12:55 Sod Chlor 0.9% 1000ml Bag IV 08/13/18 14:00 999 mls/hr .Q31M [place] Administration ORDERS Category Date Time Status Drug Screen,Urine Stat Lab 08/13/18 12:03 Ordered Occult Blood,Stool Stat Lab 08/13/18 13:05 Ordered Urinalysis and Microscopic Stat Lab 08/13/18 12:03 Ordered Holter Monitor Req by Hayder/ Stat Y 08/13/18 13:15 Ordered - ECG Data Tracing #1 Sinus bradycardia 48/min baseline artifact no acute findings. ECG initial impression date: 08/13/18 ECG initial impression time: 11:50 Medical Decision Narrative: The patient underwent orthostatic blood pressure which was negative. Her hemoglobin was 10 which is unchanged from prior underwent rectal examination negative Hemoccult. I discussed with the patient and her family that she has an isolated symptoms of lightheadedness and that she is on multiple medications blood pressure, gabapentin for neuropathy, Xanax for anxiety, tizanidine, and diuretics in addition to her Lidoderm patch. This combination of calm medication can cause hypotension bradycardia and dizzness. While in fact some of these medications are necessary completely stopping some of them can put the patient on withdrawal and this issue need to be addressed on a long-term basis by her primary care physician who will need to address her Polypharmacy. I made some recommendation on discharge that I gave her in the discharge instructions that they need to be addressed conservatively. I ordered outpatient Holter monitor to address her sinus bradycardia while the Coreg been dialed back. Her blood pressure gradually increased to the 50s on the last lysine was 61/min which was within normal limits, The patient was able to stand and go to the bathroom with assistance but her Hemoccult was positive and there was no available holter monitor. I called Dr. Esquivel identification printing machine setter for Dr. Mcnamara patient will be admitted for telemetry and observation., repeated H/H. Dizzy HPI - General Chief Complaint: Syncope Stated Complaint: hypotension Time Seen by Provider: 08/13/18 12:00 Mode of Arrival: EMS Limitations: No Limitations Description of Symptoms (Recalled from ER Triage Doc. by RN): an episode of dizziness, decreased bp; alert and oriented x4. no altered status - History of Present Illness HPI Narrative: 87 years old white female with history of labile hypertension she has recently started on lisinopril 5 mg in addition to her RV the low 6.25 mg twice daily and her Lasix 20 mg daily. 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 Today she was awakened at 630 received her breakfast and took her medications around 8 AM at 10:00 while she was doing her daily routine in the bathroom she felt dizzy she was taken back to the room and her blood pressure was 98/60 heart rate is 54/min EMS was contacted patient was brought to the ED had she is in sinus bradycardia ranging from 48-52. The dizzy episode is resolving with no chest pain no palpitations no shortness of breath no nausea no vomiting no numbness no tingling involving upper or lower extremities there is no new weakness involving her extremities. She denies having dysarthria dysphasia dysphagia or dyspnea. complaint: dizziness Onset (ago): hour(s) Time: 10:00 Timing: sudden onset Description: lightheadedness History of similar episodes: No History of trauma: No (Recent medication changes and adding of new blood pressure medicine. ) Relieving factors: nothing Exacerbating factors: nothing Associated symptoms: denies other symptoms - Related Data Home Medications Medication Instructions Recorded Confirmed Furosemide [Furosemide 20mg Tab] 10 mg PO DAILY 11/02/17 06/20/18 ALPRAZolam [Xanax 1mg tab] 1 mg PO TID 06/21/18 06/21/18 Carvedilol [Carvedilol 6.25mg Tab] 6.25 mg PO BID 06/21/18 06/21/18 Cetirizine HCl 10 mg PO DAILY 06/21/18 06/21/18 Gabapentin [Neurontin 600mg 600 mg PO QID 06/21/18 06/21/18 tablet] Levothyroxine Sodium 75 mcg PO DAILY 06/21/18 06/21/18 [Levothyroxine 75mcg (0.075mg) Tab] Sertraline HCl [Zoloft 50mg tablet] 50 mg PO DAILY 06/21/18 06/21/18 Tizanidine HCl [Zanaflex 4mg 2 mg PO HSP PRN 06/21/18 06/21/18 tablet] raNITIdine HCl [Ranitidine HCl] 150 mg PO BID 06/21/18 06/21/18 Previous Rx's Medication Instructions Recorded Cefdinir [Omnicef 300mg Capsule] 300 mg PO DAILY capsule 06/24/18 Lisinopril [Zestril 5mg 5 mg PO DAILY tablet 06/24/18 Tablet] Mupirocin [Bactroban 2% Ointment 1 applic TP TID tube 06/24/18 22gm tube] Tobramycin Sulfate [Tobramycin 360 mg IM Q48H ml 06/24/18 80mg/2mL Vial] Carvedilol [Coreg 3.125mg 3.125 mg PO BID #30 tab 08/13/18 Tablet] Levothyroxine Sodium [Synthroid 100 mcg PO DAILY #45 tab 08/13/18 100mcg (0.1mg) tablet] Allergies Allergy/AdvReac Type Severity Reaction Status Date / Time ciprofloxacin Allergy Unknown Verified 10/21/17 04:31 escitalopram Allergy Unknown Verified 10/21/17 04:31 pregabalin Allergy Unknown Verified 10/21/17 04:31 [facility] History I have reviewed the patient's past medical history: Yes Medical History: Reports:: Anxiety, Hypertension Denies:: Cancer, Diabetes Mellitus Type 1, Diabetes Mellitus Type 2, MRSA Other Medical History: Reports: Arthritis, Cataracts, Sinus Problems, Thyroid Disease Comment: 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[place] and also spinal stenosis Laterality Cases: Bilateral: Lumpectomy Other Surgeries: Yes: Appendectomy, Cholecystectomy, Colonoscopy, EGD, Hysterectomy-TotalComment Only: Other (HERNIA) Amputation: No Fractures: No - Social History Educational Level: Completed High School Smoking Status: Never smoker Alcohol Intake: never Occupational Status: retired Housing: apartment Household Members: none - Psychiatric History Expresses thoughts of harming self/others: None Suicide Plan Description: No Plan Pschychiatric History:: Reports:: Anxiety Family Hx:: No significant family history ROS Obtained: Yes All systems reviewed & no additional complaints Physical Exam - General General appearance: alert, in no apparent distress - Head Head exam: atraumatic, normocephalic, normal inspection - Eye Eye exam: Present: normal appearance, PERRL, EOMI. Absent: scleral icterus, ny stagmus - ENT ENT exam: Present: normal exam, normal oropharynx, mucous membranes moist, TM's normal bilaterally, normal external ear exam - Neck Neck exam: Present: normal inspection, full ROM, trachea midline, other (No carotid bruit. ). Absent: tenderness, meningismus, lymphadenopathy, thyromegaly - Chest Chest inspection: Present: normal inspection, symmetric chest wall rise. Absent: tenderness - Respiratory Respiratory exam: Present: normal lung sounds bilaterally. Absent: respiratory distress - Cardiovascular Cardiovascular exam: Present: regular rate, normal rhythm, bradycardia. Absent: systolic murmur, diastolic murmur, JVD - Abdominal Exam Abdominal exam: Present: soft, normal bowel sounds. Absent: distention, tenderness, guarding, rebound, rigidity - Rectal Exam Rectal exam: Present: normal rectal tone, heme (-) stool, hemorrhoids, other (Small external hemorrhoids no bleeding. ). Absent: mass, tenderness - External exam: Present: normal external exam - Extremities Exam Extremities exam: Present: normal inspection, full ROM, normal capillary refill. Absent: tenderness, calf tenderness - Back Exam Back exam: Present: normal inspection. Absent: tenderness, CVA tenderness (R), CVA tenderness (L), muscle spasm, paraspinal tenderness, vertebral tenderness - Neurological Exam Neurological exam: Present: alert, oriented X3, CN II-XII intact, motor sensory deficit, reflexes normal - Psychiatric Psychiatric exam: Present: normal affect, normal mood - Skin Skin exam: Present: warm, dry, intact, normal color - Lymphatic Lymphatic Findings: no adenopathy
[2018-08-13 16:50] LABS: Hematocrit 35.7 % (37.0-47.0); Hemoglobin 11.6 g/dL (12.2-16.2)
--- NOTE | 2018-08-14 07:30 | Pharmacy Consult Notes ---
[facility] Pharmacy VTE Monitoring - Patient Demographics Admission date: 08/13/18 Report Date: 08/14/18 Time: 07:30 Allergies/Adverse Reactions: Patient Allergies ciprofloxacin Allergy (Unknown, Verified 08/13/18 15:31) escitalopram Allergy (Unknown, Verified 08/13/18 15:31) pregabalin Allergy (Unknown, Verified 08/13/18 15:31) Height: 1.65 m Weight: 57.776 kg Patient Problems: Current Active Problems Anemia (Acute) Dizziness (Acute) Sinus bradycardia (Acute) Labile hypertension (Acute) Renal insufficiency (Acute) Dehydration (Acute) Hypothyroidism (acquired) (Acute) Pre-syncope (Acute) Medication side effect (Acute) - VTE Risk Labs: VTE Related Lab Results Hgb 11.6 g/dL (12.2-16.2) L 08/13/18 16:34 Hct 35.7 % (37.0-47.0) L 08/13/18 16:34 Plt Count 148 K/mm3 (142-424) 08/13/18 11:27 BUN 18 mg/dL (7-18) 08/13/18 11:27 Creatinine 1.27 mg/dL (0.55-1.02) H 08/13/18 11:27 Estimated Creat Clear 29 mL/min (50-200) 08/13/18 11:27 Was VTE Risk Assessment Performed: Yes VTE Score: 3 VTE Risk Level: Low Risk - Prophylaxis VTE Prophylaxis Ordered?: Yes Types of VTE Prophylaxis: TEDS Knee High Location of Applied Device: Bilateral Lower Extremeties - VTE Diagnosis Confirmed Treatment or plan recommended: Continue Current Treatment
--- NOTE | 2018-08-14 08:51 | H&P/Discharge Summary ---
General - General Admission date:: 08/13/18 Discharge date: 08/14/18 *Admission Date: 08/13/18 *Chief complaint: Weakness *History of present illness: 87-year-old white female, currently long-term resident of the [facility] who was brought to the emergency department because she was weak and had low blood pressure. She was found to be slightly dehydrated, but also was thought to have low blood pressure because of possible low hemoglobin and a report of guaiac positive stools. She was also noted to have orthostasis. Admitted overnight for observation. [facility] History I have reviewed the patient's past medical history: Yes Medical History: Reports:: Anxiety, Hypertension Denies:: Cancer, Diabetes Mellitus Type 1, Diabetes Mellitus Type 2, MRSA Other Medical History: Reports: Arthritis, Cataracts, Glaucoma, Hypothyroidism, Sinus Problems, Thyroid Disease Laterality Cases: Bilateral: Cataract, Lumpectomy Other Surgeries: Yes: Appendectomy, Cholecystectomy, Colonoscopy, EGD, Hernia Repair, Hysterectomy-Total, Other ((L) kidney removed) Amputation: No Fractures: No - *Social History Educational Level: Completed College Smoking Status: Never smoker Alcohol Intake: never Occupational Status: retired Housing: shelter Household Members: none - Psychiatric History Expresses thoughts of harming self/others: None Suicide Plan Description: No Plan Pschychiatric History:: Reports:: Anxiety *Family Hx:: Asthma, Coronary Artery Disease, Heart Attack, Hypertension Review of Systems - Review of Systems Review of systems:: pertinent systems reviewed and negative unless documented below - Constitutional Denies anorexia, Denies body ache(s) - Eyes Denies blind spots, Denies blurry vision - ENT Denies abnormal hearing - *Cardiovascular Reports shortness of breath, Reports shortness of breath with activity, Denies chest pain, Denies chest pain at rest, Denies chest pain with activity - *Respiratory Denies change in phlegm color, Denies chest congestion, Denies cough - *Gastrointestinal Reports abdominal pain (Chronic) - *Genitourinary Denies abnormal periods - *Musculoskeletal Denies abnormal walking, Denies joint pain, Denies decreased muscle mass Exam Vital signs and Labs for Last 24 Hours: Temp Pulse Resp BP Pulse Ox 97.7 F 68 16 183/79 H 97 08/14/18 08:00 08/14/18 08:00 08/14/18 08:00 08/14/18 08:00 08/14/18 08:00 Laboratory Results - last 24 hr 08/13/18 11:27: WBC 5.8, RBC 3.44 L, Hgb 10.9 L, Hct 33.3 L, MCV 96.9, MCH 31.7 H, MCHC 32.8, RDW 14.2, Plt Count 148, MPV 7.8, Neut % (Auto) 50.5, Lymph % (Auto) 36.8, [place] % (Auto) 7.9, Eos % (Auto) 4.4, Baso % (Auto) 0.4, Neut # (Auto) 2.9, Lymph # (Auto) 2.1, [place] # (Auto) 0.5, Eos # (Auto) 0.3, Baso # (Auto) 0.0 08/13/18 11:27: Sodium 137, Potassium 4.4, Chloride 103, Carbon Dioxide 28, Anion Gap 10.4, BUN 18, Creatinine 1.27 H, Estimated Creat Clear 29, Estimated GFR 40 L, Est GFR ( Amer) 48 L, Glucose 101, Calcium 8.5, Total Bilirubin 0.3, AST 17, ALT 15, Alkaline Phosphatase 43 L, Total Creatine Kinase 66, CK-MB (CK-2) 1.9, CK-MB (CK-2) Rel Index 2.9, Troponin I < 0.02, Total Protein 6.2 L, Albumin 3.1 L, Globulin 3.1, Albumin/Globulin Ratio 1.0 L, TSH 8.99 H D, Free T4 Index 2.0 L, Thyroxine (T4) 5.3, T3 Uptake 37 08/13/18 13:05: Stool Occult Blood Positive A 08/13/18 16:25: Troponin I < 0.02 08/13/18 16:34: Hgb 11.6 L, Hct 35.7 L I & O for Last 24 hours: Intake & Output 08/11/18 08/12/18 08/13/18 08/14/18 11:59 11:59 11:59 11:59 Intake Total 240 / 240 Output Total 1400 / 1400 Balance -1160 / -1160 Weight 130 lb 127 lb 6 oz Narrative: Patient is pleasant, talkative, alert, oriented x3. Oropharynx clear. No JVD. Lungs have good air movement, clear bilaterally. Heart rate regular. Abdomen is soft, has her regular pain. Sensory loss in lower extremities consistent with prior neuropathy evaluations. No edema noted. Wounds are healing slowly. Hospital Course Hospital Course: Patient was admitted, given fluids. Blood pressure medications were held. This morning she is slightly hypertensive but feels well. Ate well. No further episodes of hypotension or presyncope. Her blood counts this morning are improved. Results Labs on day of discharge: Labs from last 24 hours 08/13/18 08/13/18 08/13/18 16:34 16:25 13:05 WBC RBC Hgb 11.6 L Hct 35.7 L MCV MCH MCHC RDW Plt Count MPV Neut % (Auto) Lymph % (Auto) [place] % (Auto) Eos % (Auto) Baso % (Auto) Neut # (Auto) Lymph # (Auto) [place] # (Auto) Eos # (Auto) Baso # (Auto) Sodium Potassium Chloride Carbon Dioxide Anion Gap BUN Creatinine Estimated Creat Clear Estimated GFR Est GFR ( Amer) Glucose Calcium Total Bilirubin AST ALT Alkaline Phosphatase Total Creatine Kinase CK-MB (CK-2) CK-MB (CK-2) Rel Index Troponin I < 0.02 Total Protein Albumin Globulin Albumin/Globulin Ratio TSH Free T4 Index Thyroxine (T4) T3 Uptake Stool Occult Blood Positive A 08/13/18 08/13/18 11:27 11:27 WBC 5.8 RBC 3.44 L Hgb 10.9 L Hct 33.3 L MCV 96.9 MCH 31.7 H MCHC 32.8 RDW 14.2 Plt Count 148 MPV 7.8 Neut % (Auto) 50.5 Lymph % (Auto) 36.8 [place] % (Auto) 7.9 Eos % (Auto) 4.4 Baso % (Auto) 0.4 Neut # (Auto) 2.9 Lymph # (Auto) 2.1 [place] # (Auto) 0.5 Eos # (Auto) 0.3 Baso # (Auto) 0.0 Sodium 137 Potassium 4.4 Chloride 103 Carbon Dioxide 28 Anion Gap 10.4 BUN 18 Creatinine 1.27 H Estimated Creat Clear 29 Estimated GFR 40 L Est GFR ( Amer) 48 L Glucose 101 Calcium 8.5 Total Bilirubin 0.3 AST 17 ALT 15 Alkaline Phosphatase 43 L Total Creatine Kinase 66 CK-MB (CK-2) 1.9 CK-MB (CK-2) Rel Index 2.9 Troponin I < 0.02 Total Protein 6.2 L Albumin 3.1 L Globulin 3.1 Albumin/Globulin Ratio 1.0 L TSH 8.99 H D Free T4 Index 2.0 L Thyroxine (T4) 5.3 T3 Uptake 37 Stool Occult Blood DS: Diagnosis - Discharge Diagnosis (1) Dizziness Status: Resolved Problem details: Relative hypotension corrected now. Will discharge back to shelter with half dose blood pressure medications. (2) Labile hypertension Status: Acute Problem details: No evidence of significant anemia. This is her baseline. (3) Medication side effect Status: Acute Problem details: See notes above Discharge Medications - Medications for Discharge Home Medication List at Discharge: New Carvedilol [Coreg 3.125mg Tablet] 3.125 mg PO BID #30 tab Levothyroxine Sodium [Synthroid 100mcg (0.1mg) tablet] 100 mcg PO DAILY #45 tab No Action ALPRAZolam [Xanax 1mg tab] 1 mg PO TID Carvedilol [Carvedilol 6.25mg Tab] 6.25 mg PO BID Tizanidine HCl [Zanaflex 4mg tablet] 2 mg PO HSP PRN PRN Reason: Muscle Spasm raNITIdine HCl [Ranitidine HCl] 150 mg PO BID Sertraline HCl [Zoloft 50mg tablet] 50 mg PO DAILY Gabapentin [Neurontin 600mg tablet] 600 mg PO QID Cetirizine HCl 10 mg PO DAILY Lisinopril [Zestril 5mg Tablet] 5 mg PO DAILY Furosemide [Furosemide 20mg Tab] 10 mg PO DAILY Levothyroxine Sodium [Levothyroxine 75mcg (0.075mg) Tab] 75 mcg PO DAILY
== END 2018-08-14 11:59 ==
LOC: ER 11:45 → 2ND 11:45
PROVIDERS: ADMIT Family Medicine; ATTEND Internal Medicine Adolescent Medicine
CPT/HCPCS: 71010; 71045; 80053; 82272; 82550; 82553; 84436; 84443; 84479; 84484; 85014; 85018; 85025; 93005; 96365; 96367; 99284; G0328; G0378